=== PATIENT | male | born 1995 | race Caucasian/White ===

== ENCOUNTER 2017-12-02 10:27 | Emergency (ER) | payer OTHER ==
--- NOTE | 2017-12-02 12:37 | ER Document Report ---
HPI - HPI Patient complains to provider of: Rash Onset: Other - 8 days Pain Level: 1 Context: 22-year-old [employer] male complaining of a pruritic truncal rash. He was seen by sick call today and was told that it was hives. His mother told him to get a second opinion. No history of STDs or syphilis. No tick bite. No fever. Associated Symptoms: None Exacerbated by: Denies Relieved by: Denies Similar symptoms previously: No Recently seen / treated by doctor: Yes - ROS ROS below otherwise negative: Yes Systems Reviewed and Negative: Yes All other systems reviewed and negative Past Medical History - General Information source: Patient - Social History Smoking Status: Never Smoker Lives with: Alone Family History: Reviewed & Not Pertinent - Medical History Medical History: Negative Surgical Hx: Negative Vertical Provider Document - CONSTITUTIONAL Agree With Documented VS: Yes Exam Limitations: No Limitations - INFECTION CONTROL TRAVEL OUTSIDE OF THE [place] IN LAST 30 DAYS: No - HEENT HEENT: negative: Conjuctival Injection - NECK Neck: Supple - NEURO Level of Consciousness: Awake, Alert - DERM Integumentary: Rash - Truncal rash most consistent with pityriasis rosea, various sizes erythematous macular, some scaling Course - Vital Signs Vital signs: Temp Pulse Resp BP Pulse Ox 97.9 F 79 14 149/67 H 99 12/02/17 10:44 12/02/17 10:44 12/02/17 10:44 12/02/17 10:44 12/02/17 10:44 Discharge - Discharge Clinical Impression: Pityriasis rosea Condition: Good Disposition: HOME, SELF-CARE Instructions: Use of Diphenhydramine, Pityriasis Rosea ([facility]), Steroid Medication Additional Instructions: Keep your fingernails clean and short see you do not get these infected with Staphylococcus or Streptococcus [place] [employer] Return to the emergency room any concerns Prescriptions: Prednisone [Deltasone 10 mg Tablet] 10 mg PO ASDIR PRN #21 tablet PRN Reason:
[2017-12-02 13:36] VITALS: BP 126/60
== END 2017-12-02 13:36 | disposition home or self-care (01) ==
LOC: ER 10:27
DX: L42 Pityriasis rosea (principal)
CPT/HCPCS: 99282